=== PATIENT | female | born 1980 | race Caucasian/White ===

== ENCOUNTER 2019-01-15 12:18 | Emergency (ER) | payer MEDICAID ==
[~2019-01-15] VITALS: Wt 79.0 kg
[2019-01-15 12:28] VITALS: BP 125/69; PULSE 77; RESP 18
[2019-01-15] MEDS ORDERED: D-ME473S2 PO (15:14)
[2019-01-15] MEDS ORDERED: AZIT250T PO (15:14)
[2019-01-15] MEDS ORDERED: IBUP-1542 PO (15:14)
--- NOTE | 2019-01-15 15:17 | ERD ---
ER Documentation Chief Complaint Chief Complaint COUGH WITH CHEST WALLL PAIN X 10 DAYS HPI 38-year-old female presents with cough and chest wall pain for last 10 days. She has slight productive mucus. She had fevers at home but no fever triage. She denies vomiting, abdominal pain, urinary complaints. She states that her lungs hurt and her kidneys hurt. Denies any dysuria, lower abdominal pain. ROS All systems reviewed and are negative except as per history of present illness. Medications Home Meds Active Scripts Dextromethorphan Hb-Promethazine Hcl* (Promethazine DM* Syrup) 473 Ml Syrup, 5 ML PO Q6 PRN for COUGH for 5 Days, ML Prov:SATISH VILLAVICENCIO MD 01/15/19 Ibuprofen* (Motrin*) 600 Mg Tab, 600 MG PO Q6, #15 TAB Prov:SATISH VILLAVICENCIO MD 01/15/19 Azithromycin* (Zithromax*) 250 Mg Tablet, 250 MG PO .ZPACK DIRECTED, #6 TAB TAKE 500 MG (2 TABS) THE FIRST DAY THEN 250 MG (1 TAB) DAYS 2-5 Prov:SATISH VILLAVICENCIO MD 01/15/19 Allergies Allergies: Coded Allergies: No Known Allergy (Unverified , 01/15/19) PMhx/Soc Medical and Surgical Hx: pt denies Medical Hx, pt denies Surgical Hx Hx Alcohol Use: No Hx Substance Use: No Hx Tobacco Use: No Smoking Status: Never smoker FmHx Family History: No diabetes, No coronary disease, No other Physical Exam Vitals Vital Signs Date Temp Pulse Resp B/P (MAP) Pulse Ox O2 O2 Flow FiO2 Time Delivery Rate 01/15/19 98.2 77 18 125/69 99 12:28 (87) Physical Exam Const: No acute distress Head: Atraumatic Eyes: Normal Conjunctiva ENT: Normal External Ears, Nose and Mouth. TMs and oropharynx normal. Neck: Full range of motion. No meningismus. Resp: Clear to auscultation bilaterally coarse cough without rales, wheezing or retractions. Cardio: Regular rate and rhythm, no murmurs Abd: Soft, non tender, non distended. Normal bowel sounds Skin: No petechiae or rashes Back: No midline or flank tenderness Ext: No cyanosis, or edema Neur: Awake and alert Psych: Normal Mood and Affect Results 24 hrs Laboratory Tests Test 01/15/19 15:01 01/15/19 15:03 Bedside Urine pH (LAB) 5.5 Bedside Urine Protein (LAB) Negative Bedside Urine Glucose (UA) Negative Bedside Urine Ketones (LAB) Negative Bedside Urine Blood 3+ Bedside Urine Nitrite (LAB) Negative Bedside Urine Leukocyte Esterase (L Negative POC Beta HCG, Qualitative NEGATIVE Procedures/MDM Chest X-ray 1V Interpreted by me: Soft Tissue: No acute abnormalities Bones: No acute abnormalities Mediastinum/Cardiac Silhouette/Lungs: No acute abnormalities. Impression-no acute abnormalities on 1 view chest x-ray. Small right upper lobe granuloma. TG negative. Urine shows hemoglobin without leukocytes, nitrites, glucose. Patient presents with URI symptoms for last 10 days. She has a productive cough. She may have a lingering viral URI, but given the duration will treat empirically with Zithromax, promethazine, ibuprofen, primary care follow-up and return precautions. She has no signs of hypoxemia, rest or distress, pneumonia on exam. The patient was stable with no new complaints during the ER course. C linically, there is no current evidence to suggest meningitis, sepsis, acute abdomen, pneumonia, stroke, acute coronary syndrome, pulmonary embolism, aortic dissection or any other emergent condition appearing to require further evaluation or hospitalization. Patient counseled regarding my diagnostic impression and care plan. Prior to discharge all questions answered. Pt agrees w ith treatment plan and understands strict return precautions. Pt is instructed to follow up with primary care provider within 24-48 hours. Precautionary instructions provided including instructions to return to the ER if not improving or for any worsening or changing symptoms or concerns. Departure Diagnosis: Primary Impression: Cough Condition: Stable Patient Instructions: Bronchitis, Antiobiotic Treatment (Adult) Referrals: NO PRIMARY,CARE PHYSICIAN (PCP) Additional Instructions: No abnormalities on examination today. Likely URI or infection. Recheck for new or worsening symptoms with primary care doctor. SATISH VILLAVICENCIO MD Jan 15, 2019 15:17
== END 2019-01-15 15:20 | disposition home or self-care (01) ==
LOC: FTE 12:18
DX: R05 Cough (principal)
CPT/HCPCS: 71045; 81003; 81025